=== PATIENT | female | born 1935 | race Caucasian/White ===

== ENCOUNTER 2018-01-11 20:04 | Emergency (ER) | payer OTHER ==
[~2018-01-11] VITALS: Ht 165.1 cm; Wt 74.8 kg
[2018-01-11 20:27] VITALS: BP 145/81; Ht 165.1 cm; Wt 74.8 kg
== END 2018-01-11 23:11 | disposition left against medical advice (07) ==
LOC: ED 20:04
DX: Z53.21 Procedure and treatment not carried out due to patient leaving prior to being seen by health care provider (principal)